=== PATIENT | female | born 1995 | race Caucasian/White ===

== ENCOUNTER 2019-05-03 18:17 | Emergency (ER) | payer OTHER ==
[~2019-05-03] VITALS: Ht 165.1 cm; Wt 108.9 kg
[~2019-05-03 18:17] MED LIST: IBUP-2213 PO; PREN-385 PO
[2019-05-03 18:32] VITALS: BP 130/95
--- NOTE | 2019-05-03 18:34 | NUR ---
TRIAGE COMPLETE. VSS. RETURNED TO LOBBY TO WAIT FOR BED IN ED. LACERATION CLEANED AND DRESSED BY ANNIKA FLEMING.
--- NOTE | 2019-05-03 20:47 | NUR ---
PT AMBULATED TO BED #2
--- NOTE | 2019-05-03 21:10 | NUR ---
PT ASSESSMENT COMPLETE. PT SEATED UPRIGHT IN BED. [id number] UP. WILL CONTINUE TO MONITOR.
--- NOTE | 2019-05-03 22:03 | NUR ---
RIGHT THUMB CLEANED WITH NORMAL SALINE SOLUTION. METAL ALUMINUM FINGER SPLINT APPLIED TO THE RIGHT THUMB PER VERBAL ORDER BY DR. CALDWELL AND SECURED WITH TAPE.
[2019-05-03] MEDS ORDERED: IBUPROFEN 800 MG TAB PO ONE (22:05)
== END 2019-05-03 22:30 | disposition home or self-care (01) ==
LOC: MED 18:17
DX: S61.011A Laceration without foreign body of right thumb without damage to nail, initial encounter (principal); Z79.899 Other long term (current) drug therapy; W45.8XXA Other foreign body or object entering through skin, initial encounter; Y93.89 Activity, other specified; Y92.89 Other specified places as the place of occurrence of the external cause; Y99.8 Other external cause status
CPT/HCPCS: 12001; 73130; 90471; 90715; 99283